=== PATIENT | female | born 1960 | race African-American/Black ===

== ENCOUNTER → 2023-12-08 | Outpatient (CLI) | payer BC ==
[2023-12-08 11:07] LABS: Urine Blood Negative /uL (Negative); Urine Clarity Clear (Clear); Urine Color Colorless (Yellow); Urine Protein, UAD Negative (Negative); Urine Urobilinogen Normal (Negative); Urine pH 6.5 (5.0-8.0)
[2023-12-08 11:08] LABS: Basophils # (auto) 0 10 ^3/uL (0-0.2); Basophils % (auto) 0.7 % (0.0-2.0); Eosinophils # (auto) 0.1 10 ^3/uL (0-0.8); Eosinophils % (auto) 2.5 % (0.0-7.0); Hematocrit 38.7 % (36.0-46.0); Hemoglobin 12.9 g/dL (12.2-16.2); Lymphocytes # (auto) 1.5 10 ^3/uL (0.4-5.4); Lymphocytes % (auto) 48.6 % (10.0-50.0); Mean Corpuscular Hemoglobin 30.2 pg (28.0-32.0); Mean Corpuscular Hgb Conc. 33.3 g/dL (32.0-36.0); Mean Corpuscular Volume 90.7 fL (80.0-100.0); Monocytes # (auto) 0.2 10 ^3/uL (0-1.3); Monocytes % (auto) 7.1 % (0.0-12.0); Neutrophils # (auto) 1.3 10 ^3/uL (1.6-8.6); Neutrophils % (auto) 41.1 % (37.0-80.0); Nucleated Red Blood Cells % 0.1 %; Red Blood Cells 4.27 10^6/uL (4.0-5.20); Red Cell Distribution Width 13.6 % (11.8-14.3); White Blood Cell 3.1 10^3/uL (4.4-10.8)
[2023-12-08 11:42] LABS: Alanine Aminotransferase 14 U/L (7-40); Alkaline Phosphatase 96 U/L (46-116); Anion Gap 6 (5-15); Aspartate Aminotransferase 23 U/L (13-40); BUN/Creatinine Ratio 8.9 (10.0-20.0); Blood Urea Nitrogen 7 mg/dL (9-23); Calcium 9.3 mg/dL (8.5-10.1); Carbon Dioxide 30 mmol/L (20-30); Chloride 105 mmol/L (98-107); Glucose 92 mg/dL (74-106); Potassium 3.2 mmol/L (3.5-5.1); Sodium 141 mmol/L (136-145); Triglycerides 73 mg/dL (< 150)
[2023-12-08 11:43] LABS: Albumin 4.8 g/dL (3.2-4.8); LDL Cholesterol 148 mg/dL (< 100)
[2023-12-08 11:44] LABS: Bilirubin, Total 0.7 mg/dL (0.2-1.0); Cholesterol 232 mg/dL (< 200); HDL Cholesterol 75 mg/dL (40-59); Total Protein 7.4 g/dL (5.7-8.2)
[2023-12-08 12:06] LABS: Magnesium 2.1 mg/dL (1.6-2.6)
[2023-12-09 07:06] LABS: RPR Non Reactive (Non Reactive)
[2023-12-09 17:06] LABS: Chlamydia Trachomatis, NAA Negative (Negative); Neisseria gonorrhoeae, NAA Negative (Negative)
[2023-12-10 09:12] LABS: Hepatitis B Core Total AB Negative (Negative)
[2023-12-10 11:16] LABS: Hepatitis A Total Antibody Positive (Negative); Hepatitis B Surface Antibody Negative (Negative)
[2023-12-10 11:17] LABS: Hepatitis B Surface Antigen Negative (Negative); Hepatitis C Antibody Negative (Negative)
== END | disposition home or self-care (01) ==
LOC: LAB 10:28
DX: Z00.01 Encounter for general adult medical examination with abnormal findings (principal); Z12.11 Encounter for screening for malignant neoplasm of colon; E55.9 Vitamin D deficiency, unspecified; E87.6 Hypokalemia
CPT/HCPCS: 36415; 80053; 80061; 81003; 82306; 83036; 83735; 84439; 84443; 85025; 86592; 86703; 86704; 86706; 86708; 86803; 87340

== ENCOUNTER → 2024-02-12 | Outpatient (CLI) | payer BC ==
[2024-02-12 12:38] LABS: Alanine Aminotransferase 14 U/L (7-40); Albumin 4.5 g/dL (3.2-4.8); Alkaline Phosphatase 94 U/L (46-116); Anion Gap 3 (5-15); Aspartate Aminotransferase 17 U/L (13-40); BUN/Creatinine Ratio 15.1 (10.0-20.0); Bilirubin, Total 0.5 mg/dL (0.2-1.0); Blood Urea Nitrogen 11 mg/dL (9-23); Calcium 9.5 mg/dL (8.5-10.1); Carbon Dioxide 30 mmol/L (20-30); Chloride 108 mmol/L (98-107); Glucose 88 mg/dL (74-106); Potassium 3.9 mmol/L (3.5-5.1); Sodium 141 mmol/L (136-145); Total Protein 7.1 g/dL (5.7-8.2)
== END | disposition home or self-care (01) ==
LOC: LAB 10:53
PROVIDERS: ATTEND Student in an Organized Health Care Education/Training Program
DX: E87.6 Hypokalemia (principal)
CPT/HCPCS: 36415; 80053

== ENCOUNTER → 2024-04-04 | Outpatient (CLI) | payer BC ==
[2024-04-04 11:32] LABS: Urine Bacteria None Seen /hpf (None Seen)
[2024-04-04 11:34] LABS: Basophils # (auto) 0 10 ^3/uL (0-0.2); Basophils % (auto) 0.7 % (0.0-2.0); Eosinophils # (auto) 0.1 10 ^3/uL (0-0.8); Eosinophils % (auto) 3.4 % (0.0-7.0); Hematocrit 37.4 % (36.0-46.0); Hemoglobin 12.5 g/dL (12.2-16.2); Lymphocytes # (auto) 1.5 10 ^3/uL (0.4-5.4); Mean Corpuscular Hemoglobin 30.6 pg (28.0-32.0); Mean Corpuscular Hgb Conc. 33.4 g/dL (32.0-36.0); Mean Corpuscular Volume 91.8 fL (80.0-100.0); Monocytes # (auto) 0.3 10 ^3/uL (0-1.3); Monocytes % (auto) 8.3 % (0.0-12.0); Neutrophils # (auto) 1.5 10 ^3/uL (1.6-8.6); Neutrophils % (auto) 43.6 % (37.0-80.0); Nucleated Red Blood Cells % 0.1 %; Red Blood Cells 4.08 10^6/uL (4.0-5.20); Red Cell Distribution Width 13.4 % (11.8-14.3); White Blood Cell 3.4 10^3/uL (4.4-10.8)
[2024-04-04 11:39] LABS: Urine Blood Negative /uL (Negative); Urine Clarity Clear (Clear); Urine Color Yellow (Yellow); Urine Mucus FEW (None Seen); Urine Protein, UAD TRACE (Negative); Urine Urobilinogen Normal (Negative); Urine WBC 11 /hpf (0 - 5); Urine pH 6.5 (5.0-9.0)
[2024-04-04 12:15] LABS: Protein, Urine 23.3 mg/dL (0.0-11.9)
[2024-04-04 12:16] LABS: Amphetamine Screen, Urine Neg (NEGATIVE)
[2024-04-04 12:17] LABS: Barbiturate Scree,Urine Neg (NEGATIVE); Benzodiazephine Screen, Urine Neg (NEGATIVE); Cocaine Screen, Urine Neg (NEGATIVE); Opiate Scree,Urine Neg (NEGATIVE)
[2024-04-04 12:18] LABS: Phencyclidine Screen, Urine Neg (NEGATIVE)
[2024-04-04 12:19] LABS: Alanine Aminotransferase 13 U/L (7-40); Albumin 4.6 g/dL (3.2-4.8); Alkaline Phosphatase 93 U/L (46-116); Anion Gap 6 (5-15); Aspartate Aminotransferase 14 U/L (13-40); BUN/Creatinine Ratio 17.4 (10.0-20.0); Blood Urea Nitrogen 15 mg/dL (9-23); Calcium 9.6 mg/dL (8.7-10.4); Cannabinoid Screen, Urine Neg (NEGATIVE); Carbon Dioxide 28 mmol/L (20-30); Chloride 106 mmol/L (98-107); Creatine Kinase IFCC 187 U/L (34-145); Glucose 89 mg/dL (74-106); LDL Cholesterol 154 mg/dL (< 100); Magnesium 1.7 mg/dL (1.6-2.6); Potassium 3.5 mmol/L (3.5-5.1); Sodium 140 mmol/L (136-145); Triglycerides 83 mg/dL (< 150)
[2024-04-04 12:20] LABS: Bilirubin, Total 0.7 mg/dL (0.2-1.0); Cholesterol 232 mg/dL (< 200); HDL Cholesterol 72 mg/dL (40-59); Total Protein 7.2 g/dL (5.7-8.2)
== END | disposition home or self-care (01) ==
LOC: LAB 11:14
DX: E87.6 Hypokalemia (principal); E78.5 Hyperlipidemia, unspecified; D70.9 Neutropenia, unspecified
CPT/HCPCS: 36415; 80053; 80061; 80307; 81001; 82088; 82550; 82607; 83036; 83735; 84156; 84244; 84443; 85025

== ENCOUNTER → 2024-05-09 | Outpatient (CLI) | payer BC | END | disposition home or self-care (01) | LOC: XYW 14:56 | PROVIDERS: ATTEND Student in an Organized Health Care Education/Training Program | DX: Z01.810 Encounter for preprocedural cardiovascular examination (principal); I51.89 Other ill-defined heart diseases | CPT/HCPCS: 93306 ==

== ENCOUNTER → 2024-07-26 | Outpatient (CLI) | payer BC ==
[2024-07-26 11:12] LABS: Urine Bacteria None Seen /hpf (None Seen)
[2024-07-26 12:01] LABS: Urine Blood Negative /uL (Negative); Urine Clarity Turbid (Clear); Urine Color Yellow (Yellow); Urine Mucus FEW (None Seen); Urine Protein, UAD 1+ (Negative); Urine Specific Gravity 1.023 (1.001-1.035); Urine Urobilinogen Normal (Negative); Urine WBC 23 /hpf (0 - 5)
[2024-07-26 12:11] LABS: Alanine Aminotransferase 17 U/L (7-40); Albumin 4.6 g/dL (3.2-4.8); Alkaline Phosphatase 86 U/L (46-116); Anion Gap 4 (5-15); Aspartate Aminotransferase 17 U/L (13-40); BUN/Creatinine Ratio 13.6 (10.0-20.0); Blood Urea Nitrogen 12 mg/dL (9-23); Calcium 9.8 mg/dL (8.7-10.4); Carbon Dioxide 29 mmol/L (20-31); Chloride 108 mmol/L (98-107); Glucose 101 mg/dL (74-106); LDL Cholesterol 94 mg/dL (< 100); Potassium 3.8 mmol/L (3.5-5.1); Sodium 141 mmol/L (136-145); Triglycerides 50 mg/dL (< 150)
[2024-07-26 12:12] LABS: Bilirubin, Total 0.7 mg/dL (0.2-1.0); Cholesterol 173 mg/dL (< 200); HDL Cholesterol 66 mg/dL (40-59); Total Protein 7.5 g/dL (5.7-8.2)
[2024-07-26 12:41] LABS: Basophils # (auto) 0 10 ^3/uL (0-0.2); Basophils % (auto) 0.3 % (0.0-2.0); Eosinophils # (auto) 0 10 ^3/uL (0-0.8); Eosinophils % (auto) 1.1 % (0.0-7.0); Hemoglobin 12.2 g/dL (12.2-16.2); Lymphocytes # (auto) 1.2 10 ^3/uL (0.4-5.4); Lymphocytes % (auto) 31.1 % (10.0-50.0); Mean Corpuscular Hemoglobin 30.6 pg (28.0-32.0); Mean Corpuscular Hgb Conc. 33.1 g/dL (32.0-36.0); Mean Corpuscular Volume 92.5 fL (80.0-100.0); Monocytes # (auto) 0.2 10 ^3/uL (0-1.3); Monocytes % (auto) 5.4 % (0.0-12.0); Neutrophils # (auto) 2.5 10 ^3/uL (1.6-8.6); Neutrophils % (auto) 62.1 % (37.0-80.0); Platelet Count (auto) 221 10^3/uL (140-450); Red Cell Distribution Width 13.5 % (11.8-14.3)
== END | disposition home or self-care (01) ==
LOC: LAB 10:53
DX: I10 Essential (primary) hypertension (principal); E78.5 Hyperlipidemia, unspecified; E87.6 Hypokalemia; E55.9 Vitamin D deficiency, unspecified; D70.9 Neutropenia, unspecified
CPT/HCPCS: 36415; 80053; 80061; 81001; 82306; 83036; 83970; 84443; 85025

== ENCOUNTER → 2024-11-02 | Outpatient (CLI) | payer BC ==
[~2024-11-02] VITALS: Ht 165.1 cm; Wt 73.0 kg
--- NOTE | 2024-11-02 11:38 | DVHCARD ---
Cardiology Stress Test [place] Treadmill Stress Test [place] Referring MD: MD Lalo Protocol: Ayan (with cardiolite) Reason for referral: Other (Cardiac clearance ) Target heart Rate:@85%: 133 Percent MPHR: 157 METS: 10.10 Resting Heart rate: 64 Resting Blood Pressure: 137/82 Exercise Heart Rate: 160 Exercise Blood Pressure: 178/83 Baseline EKG: normal sinus rhythm Stress EKG: sinus tachycardia Functional Capacity: Good Normal Heart Rate Response: Adequate Blood Pressure Response: Hypertensive Clinical response: Inconclusive (artifact throughout ) Arrhythmia?: No ST-T Changes: Inconclusive (artifact throughout test ) Probability of Inducible Ische: Perfusion result pending (Artifact in all leads throughout test ) Date of Service: Nov 02, 2024 Billing Provider: SOHA REYES Cardiology Common Codes: PROCEDURE ONLY Treadmill W/Cardiolite Nuclear: [id number], INTERP, RPT SOHA REYES Nov 02, 2024 11:38
--- NOTE | 2024-11-02 16:34 | DVHSR ---
APPROVED REPORT Exam: Nuclear Stress Test Indication: Pre-Operative BMI: 0 Medical History Medical History: HTN, Hyperlipidemia Allergies: No known drug allergies Stress Test Details Stress Test: Exercise stress testing was performed using a Ayan protocol. HR Resting HR: 64 bpmMax Heart Rate (APMHR): 157.695358 bpm Max HR Achieved: 160 bpmTarget HR (85% APMHR): 133.335589 bpm % of APMHR: 101.91 Recovery HR: 81 bpm BP Resting BP: 137/82 mmHg Recovery BP: 147/94 mmHg ECG Resting ECG: Sinus Rhythm Clinical Reason for Termination: Completed protocol Nurse Comments Recieved ambulatory, A/Ox4 on RA, connected to awake overnight monitor, VS stable. PIV S/L flushes well, revi ewed POC, pt verbalized understanding. Andrea SPANISH LINGUIST here to monitor exam. Treadmill test performed per protocol. Pt stable, tolerated well, VS returned to baseline. Pt to follow up with video software engineer for results. Stress ECG Conclusion no severe stress induced ischemia normal lvef lvef 72% NM EXAM: Myocardial Perfusion REST/STRESS Imaging Protocol: Rest Tc-99m/Stress Tc-99m 1 day Resting Data Rest SPECT myocardial perfusion imaging was performed in supine position 60 minutes following the int ravenous injection of 11.7 mCi of Tc-99m Sestamibi. Time of rest injection: 0841 Time of rest imagin Administration Route: IV Administration Site: Left Hand Exercise Stress At peak stress, the patient was injected intravenously with 30.3mCi of Tc-99m Sestamibi. Time of stress injection: 1015 Time of stress imagin Administration Route: IV Administration Site: Left Hand Patient continued to exercise for 9 minute(s). Gated Stress SPECT was performed 30 minutes after stress injection. The images were gated to evaluate regional wall motion and calculate left ventricular ejection fracti on. Stress only was performed in the Supine position. Nuclear Conclusion Nuclear Findings: negative for ischemia no severe stress induced ischemia normal lvef lvef 72%
== END | disposition home or self-care (01) ==
LOC: XYW 08:10
PROVIDERS: ATTEND Internal Medicine
DX: Z01.810 Encounter for preprocedural cardiovascular examination (principal); K80.20 Calculus of gallbladder without cholecystitis without obstruction
CPT/HCPCS: 78452; 93017; A9500

== ENCOUNTER → 2024-11-22 | Outpatient (CLI) | payer BC ==
[2024-11-22 10:34] LABS: Urine Bacteria None Seen /hpf (None Seen)
[2024-11-22 10:55] LABS: Basophils # (auto) 0 10 ^3/uL (0-0.2); Basophils % (auto) 0.7 % (0.0-2.0); Eosinophils # (auto) 0.1 10 ^3/uL (0-0.8); Eosinophils % (auto) 3.7 % (0.0-7.0); Hematocrit 34.2 % (36.0-46.0); Hemoglobin 11.7 g/dL (12.2-16.2); Lymphocytes # (auto) 1.3 10 ^3/uL (0.4-5.4); Lymphocytes % (auto) 39.6 % (10.0-50.0); Mean Corpuscular Hemoglobin 31.4 pg (28.0-32.0); Mean Corpuscular Hgb Conc. 34.3 g/dL (32.0-36.0); Mean Corpuscular Volume 91.5 fL (80.0-100.0); Monocytes # (auto) 0.3 10 ^3/uL (0-1.3); Monocytes % (auto) 8.8 % (0.0-12.0); Neutrophils # (auto) 1.6 10 ^3/uL (1.6-8.6); Neutrophils % (auto) 47.2 % (37.0-80.0); Platelet Count (auto) 234 10^3/uL (140-450); Red Blood Cells 3.73 10^6/uL (4.0-5.20); Red Cell Distribution Width 13.6 % (11.8-14.3); White Blood Cell 3.4 10^3/uL (4.4-10.8)
[2024-11-22 11:17] LABS: Alanine Aminotransferase 24 U/L (7-40); Albumin 4.7 g/dL (3.2-4.8); Alkaline Phosphatase 92 U/L (46-116); Anion Gap 10 (5-15); Aspartate Aminotransferase 22 U/L (13-40); BUN/Creatinine Ratio 13.4 (10.0-20.0); Blood Urea Nitrogen 11 mg/dL (9-23); Carbon Dioxide 26 mmol/L (20-31); Chloride 104 mmol/L (98-107); Glucose 93 mg/dL (74-106); Potassium 4.2 mmol/L (3.5-5.1); Sodium 140 mmol/L (136-145); Total Protein 7.4 g/dL (5.7-8.2)
[2024-11-22 11:18] LABS: Bilirubin, Total 0.6 mg/dL (0.2-1.0)
[2024-11-22 11:51] LABS: Urine Blood Negative /uL (Negative); Urine Clarity Clear (Clear); Urine Color Light-Yellow (Yellow); Urine Mucus FEW (None Seen); Urine Protein, UAD Negative (Negative); Urine Specific Gravity 1.015 (1.001-1.035); Urine Squamous Epithelial Cell FEW /hpf (<5); Urine Urobilinogen Normal (Negative); Urine WBC 9 /HPF (0-5); Urine pH 7.5 (5.0-9.0)
[2024-11-22 12:15] LABS: Triglycerides 64 mg/dL (< 150)
[2024-11-22 12:16] LABS: LDL Cholesterol 80 mg/dL (< 100)
[2024-11-22 12:17] LABS: Cholesterol 156 mg/dL (< 200)
[2024-11-22 12:18] LABS: HDL Cholesterol 63 mg/dL (40-59)
== END | disposition home or self-care (01) ==
LOC: LAB 10:20
PROVIDERS: ATTEND Nurse Practitioner Family
DX: Z12.11 Encounter for screening for malignant neoplasm of colon (principal); I10 Essential (primary) hypertension; E21.3 Hyperparathyroidism, unspecified; E03.9 Hypothyroidism, unspecified; E87.6 Hypokalemia; E78.6 Lipoprotein deficiency
CPT/HCPCS: 36415; 80053; 80061; 81001; 82306; 83036; 83970; 84439; 84443; 85025; 86376

== ENCOUNTER → 2025-01-19 | Outpatient (CLI) | payer BC ==
[2025-01-19 10:10] LABS: Urine Bacteria None Seen /hpf (None Seen)
[2025-01-19 10:32] LABS: Basophils # (auto) 0 10 ^3/uL (0-0.2); Basophils % (auto) 0.3 % (0.0-2.0); Eosinophils # (auto) 0.1 10 ^3/uL (0-0.8); Eosinophils % (auto) 2.9 % (0.0-7.0); Hematocrit 37.2 % (36.0-46.0); Hemoglobin 12.7 g/dL (12.2-16.2); Lymphocytes # (auto) 1.3 10 ^3/uL (0.4-5.4); Lymphocytes % (auto) 40.1 % (10.0-50.0); Mean Corpuscular Hemoglobin 31.2 pg (28.0-32.0); Mean Corpuscular Hgb Conc. 34.2 g/dL (32.0-36.0); Mean Corpuscular Volume 91.2 fL (80.0-100.0); Monocytes # (auto) 0.3 10 ^3/uL (0-1.3); Monocytes % (auto) 8.3 % (0.0-12.0); Neutrophils # (auto) 1.6 10 ^3/uL (1.6-8.6); Neutrophils % (auto) 48.4 % (37.0-80.0); Platelet Count (auto) 206 10^3/uL (140-450); Red Blood Cells 4.08 10^6/uL (4.0-5.20); Red Cell Distribution Width 13.9 % (11.8-14.3); White Blood Cell 3.3 10^3/uL (4.4-10.8)
[2025-01-19 10:40] LABS: Urine Blood Negative /uL (Negative); Urine Clarity Clear (Clear); Urine Color Light-Yellow (Yellow); Urine Hyaline Cast FEW /lpf (0 - 2); Urine Mucus FEW (None Seen); Urine Protein, UAD Negative (Negative); Urine Specific Gravity 1.016 (1.001-1.035); Urine Squamous Epithelial Cell FEW /hpf (<5); Urine Urobilinogen Normal (Negative); Urine WBC 11 /HPF (0-5); Urine pH 7.5 (5.0-9.0)
[2025-01-19 10:58] LABS: Alanine Aminotransferase 19 U/L (7-40); Alkaline Phosphatase 85 U/L (46-116); Anion Gap 6 (5-15); Carbon Dioxide 28 mmol/L (20-31); Chloride 107 mmol/L (98-107); Potassium 4.5 mmol/L (3.5-5.1); Sodium 141 mmol/L (136-145)
[2025-01-19 10:59] LABS: Glucose 95 mg/dL (74-106)
[2025-01-19 11:00] LABS: BUN/Creatinine Ratio 20.2 (10.0-20.0); Blood Urea Nitrogen 19 mg/dL (9-23); Total Protein 7.6 g/dL (5.7-8.2); Triglycerides 75 mg/dL (< 150)
[2025-01-19 11:01] LABS: Aspartate Aminotransferase 20 U/L (13-40); LDL Cholesterol 80 mg/dL (< 100)
[2025-01-19 11:02] LABS: Albumin 4.9 g/dL (3.2-4.8); Bilirubin, Total 0.7 mg/dL (0.2-1.0); Cholesterol 158 mg/dL (< 200); HDL Cholesterol 63 mg/dL (40-59)
== END | disposition home or self-care (01) ==
LOC: LAB 09:54
PROVIDERS: ATTEND Nurse Practitioner Family
DX: I10 Essential (primary) hypertension (principal); D70.9 Neutropenia, unspecified; E03.9 Hypothyroidism, unspecified; E76.9 Glucosaminoglycan metabolism disorder, unspecified; R79.89 Other specified abnormal findings of blood chemistry
CPT/HCPCS: 36415; 80053; 80061; 81001; 82306; 83036; 83970; 84443; 84480; 85025

== ENCOUNTER 2025-02-15 06:06 | Inpatient (IN) | payer BC ==
[2025-02-14 11:13] LABS: Basophils # (auto) 0 10 ^3/uL (0-0.2); Basophils % (auto) 0.7 % (0.0-2.0); Eosinophils # (auto) 0.1 10 ^3/uL (0-0.8); Eosinophils % (auto) 2.8 % (0.0-7.0); Hematocrit 36.9 % (36.0-46.0); Hemoglobin 12.5 g/dL (12.2-16.2); Lymphocytes # (auto) 1.4 10 ^3/uL (0.4-5.4); Lymphocytes % (auto) 42.4 % (10.0-50.0); Mean Corpuscular Hemoglobin 30.8 pg (28.0-32.0); Mean Corpuscular Hgb Conc. 33.8 g/dL (32.0-36.0); Monocytes # (auto) 0.3 10 ^3/uL (0-1.3); Monocytes % (auto) 9.2 % (0.0-12.0); Neutrophils # (auto) 1.5 10 ^3/uL (1.6-8.6); Neutrophils % (auto) 44.9 % (37.0-80.0); Platelet Count (auto) 236 10^3/uL (140-450); Red Blood Cells 4.06 10^6/uL (4.0-5.20); White Blood Cell 3.4 10^3/uL (4.4-10.8)
[2025-02-14 11:22] LABS: Alanine Aminotransferase 18 U/L (7-40); Albumin 4.8 g/dL (3.2-4.8); Alkaline Phosphatase 85 U/L (46-116); Anion Gap 9 (5-15); Aspartate Aminotransferase 18 U/L (13-40); BUN/Creatinine Ratio 14.4 (10.0-20.0); Blood Urea Nitrogen 13 mg/dL (9-23); Calcium 9.9 mg/dL (8.7-10.4); Carbon Dioxide 27 mmol/L (20-31); Chloride 106 mmol/L (98-107); Glucose 97 mg/dL (74-106); INR 0.98 (0.9-1.15); Partial Thromboplastin Time 26.9 SEC (24.5-34.5); Potassium 4.5 mmol/L (3.5-5.1); Prothrombin Time 10.4 sec (9.3-11.8); Sodium 142 mmol/L (136-145); Total Protein 7.4 g/dL (5.7-8.2); Urine Bacteria FEW /hpf (None Seen); Urine Blood Negative /uL (Negative); Urine Clarity Clear (Clear); Urine Color Light-Yellow (Yellow); Urine Protein, UAD Negative (Negative); Urine Specific Gravity 1.006 (1.001-1.035); Urine Squamous Epithelial Cell FEW /hpf (<5); Urine Urobilinogen Normal (Negative); Urine WBC 3 /HPF (0-5)
[2025-02-14 11:23] LABS: Bilirubin, Total 0.5 mg/dL (0.2-1.0)
[~2025-02-15] VITALS: Ht 165.1 cm; Wt 84.4 kg
[2025-02-15] VITALS (7 sets, daily range): BP systolic 110–137; BP diastolic 72–83; PULSE 61–88; RESP 11–18; TEMP 97.3–98.5; O2SAT 97–99
[~2025-02-15 06:06] MED LIST: ASCO500T11 GT; ATOR20TA50 PO; CETI-195 PO; FERR1TAB31 PO; GARL200T PO; MAGN400T40 OR; MULT-1018 PO; POTA-36 PO; SPIR50TA5 PO
[2025-02-15] MEDS: ceFAZolin 2 GM/D5W50ml 50 ML IV ONE (06:18)
[2025-02-15] MEDS: SUCCINYLCHOLINE CHLORIDE 20 MG/ML 10ML VIAL IV ONE (06:56)
[2025-02-15] MEDS ORDERED: fentaNYL CITRATE 100 MCG/2 ML VL ONE (07:00)
[2025-02-15] MEDS ORDERED: HYDROmorphone HCL 2 MG/ML VL/or syr ONE (07:00)
[2025-02-15] MEDS ORDERED: PROPOFOL 10 MG/ML 20 ML IV ONE (07:01)
[2025-02-15] MEDS ORDERED: PHENYLEPHRINE HCL 10 MG/ML VL ONE (07:01)
[2025-02-15] MEDS: LIDOCAINE W/ EPINEPHRINE 1% 20ML VIAL ONE (07:06)
[2025-02-15] MEDS: BUPIVACAINE 0.5% MPF INJ 30ML SDV IJ ONE (07:25)
[2025-02-15] MEDS ORDERED: ROCURONIUM 10MG/ML 10ML VIAL IV ONE (07:58)
[2025-02-15] MEDS ORDERED: ePHEDrine SULFATE 50 MG/ML AMP ONE (08:04)
[2025-02-15] MEDS ORDERED: ONDANSETRON HCL 4 MG/2 ML VIAL ONE (08:13)
[2025-02-15] MEDS ORDERED: DexAMETHasone SOD PHOS 10MG/1ML VIAL INJ ONE (08:13)
[2025-02-15] MEDS ORDERED: SUGAMMADEX 200mg/2ml Vial (100MG/ML) IV ONE (08:36)
[2025-02-15] MEDS ORDERED: ONDANSETRON HCL 4 MG/2 ML VIAL IV PRN ×2 (08:45→14:00)
[2025-02-15] MEDS ORDERED: HYDROmorphone HCL 2 MG/ML VL/or syr IV PRN (09:00)
[2025-02-15] MEDS ORDERED: MEPERIDINE HCL (25 MG/ML) 1ML VIAL IV PRN (09:00)
[2025-02-15] MEDS: cefTRIAXone 1GM/50ML D5W 50 ML IV SCH (09:00)
[2025-02-15] MEDS: ONDANSETRON HCL 4 MG/2 ML VIAL IV ONE (09:00)
--- NOTE | 2025-02-15 09:24 | DVHOP ---
DATE OF SURGERY: 02/15/2025 PREOPERATIVE DIAGNOSES: Cholelithiasis, cholecystitis. POSTOPERATIVE DIAGNOSES: Cholelithiasis, cholecystitis. SURGEON: Josemanuel Guevara MD SHEET MILL SUPERVISOR: Nura Gama NP ANESTHESIA: General endotracheal, Dr. Davila. PROCEDURES: Laparoscopy, laparoscopic cholecystectomy. DESCRIPTION OF PROCEDURE: Under general endotracheal anesthesia, with the patient's skin prepped and draped, a supraumbilical incision was made and Veress needle inserted into the peritoneal cavity by the hanging drop technique in order to establish pneumoperitoneum to 15 mmHg pressure by insufflation with carbon dioxide. With the abdomen fully distended, the needle was removed and replaced with a 5 mm trocar port through which a 0-degree viewing laparoscope was inserted and under direct vision, additional ports were inserted, 5 mm at the anterior axillary line at the level of the umbilicus, 10 mm port in the subxiphoid skin in the midline. Instrumentation was introduced. Laparoscopy was performed revealing no obvious unexpected pathology. The gallbladder was placed on tension. The cystic duct and cystic artery were identified, circumferentially dissected and traced into the hepatocystic triangle so as to minimize the potential for inadvertent injury to the common bile duct. The cystic duct was then divided between metallic clips away from the common duct and the cystic artery divided similarly between clips. The cystic artery retracted after division and there was a small amount of bleeding from the stump of the cystic artery. This was placed on tension and individually ____. Another Hemoclip was placed at the proximal end of the cystic artery, which arrested the bleeding. Subsequently, the gallbladder was resected from its liver bed by electrocautery and traction and a fully mobilized gallbladder was placed into the specimen extraction bag and was retrieved from the peritoneal cavity through the subxiphoid 10 mm port site. Subsequently, the right upper quadrant was profusely irrigated. Irrigant was aspirated. Hemostasis was meticulously assured and found to be complete. A small amount of hemostatic SNoW was placed on to the cystic artery stump. Instrumentation was withdrawn. Pneumoperitoneum was evacuated. Fascial defect closed using 0 Vicryl. The wounds were approximated using Monocryl sutures, Dermabond glue, and Steri-Strips. The patient remained stable throughout the procedure and left the operating room following an accurate needle and sponge counts. Her , Srinivas William, was thoroughly informed in the waiting room. MD MARILYN Chen/MASON/TORRIE TID: [id number] RECEIPT: [id number]
[2025-02-15] MEDS: ACETAMINOPHEN IV 1000 MG/100ML (10MG/ML) IV PRN (09:50)
[2025-02-15] MEDS: PANTOPRAZOLE 40 MG/10 ML VIAL INJ IV SCH (10:00)
[2025-02-15] MEDS: D5W/SOD CHL 0.45%/KCL 20MEQ 1,000 ML IV SCH (12:23)
--- NOTE | 2025-02-15 13:57 | DVHHP2 ---
Review of Systems Allergies: Coded Allergies: Latex (Unverified Allergy, Mild, hives , 02/10/25) Aspirin (Verified Allergy, Unknown, 11/02/24) NSAIDs (Verified Allergy, Unknown, 11/02/24) Medications Current Medications Medications Dose Ordered Sig/Azra Route Start Time Stop Time Status Last Admin Dose Admin Potassium Chloride/Dextrose/ Sod Cl 1,000 ml @ 120 mls/hr Q8H20M IV 02/15/25 08:45 02/15/25 12:23 120 MLS/HR Hydromorphone HCl 1 mg Q3HPRN PRN IV 02/15/25 08:45 Ceftriaxone Sodium 50 ml @ 100 mls/hr DAILY@09 IV 02/15/25 09:00 Ondansetron HCl 4 mg Q4HPRN PRN IV 02/15/25 08:45 Pantoprazole Sodium 40 mg DAILY IV 02/15/25 10:00 Exam Vital Signs Vital Signs Date Time Temp Pulse Resp B/P (MAP) Pulse Ox O2 Delivery O2 Flow Rate FiO2 02/15/25 10:10 Nasal Cannula 3.0 91 02/15/25 10:10 64 16 140/87 (104) 100 02/15/25 08:50 97.9 97.9 Labs/Xrays Labs Test 02/14/25 10:25 Range/Units White Blood Count 3.4 L 4.4-10.8 10^3/uL Red Blood Count 4.06 4.0-5.20 10^6/uL Hemoglobin 12.5 12.2-16.2 g/dL Hematocrit 36.9 36.0-46.0 % Mean Corpuscular Volume 91.0 80.0-100.0 fL Mean Corpuscular Hemoglobin 30.8 28.0-32.0 pg Mean Corpuscular Hemoglobin Concent 33.8 32.0-36.0 g/dL Red Cell Distribution Width 13.0 11.8-14.3 % Platelet Count 236 140-450 10^3/uL Mean Platelet Volume 7.5 6.9-10.8 fL Neutrophils (%) (Auto) 44.9 37.0-80.0 % Lymphocytes (%) (Auto) 42.4 10.0-50.0 % Monocytes (%) (Auto) 9.2 0.0-12.0 % Eosinophils (%) (Auto) 2.8 0.0-7.0 % Basophils (%) (Auto) 0.7 0.0-2.0 % Neutrophils # (Auto) 1.5 L 1.6-8.6 10 ^3/uL Lymphocytes # (Auto) 1.4 0.4-5.4 10 ^3/uL Monocytes # (Auto) 0.3 0-1.3 10 ^3/uL Eosinophils # (Auto) 0.1 0-0.8 10 ^3/uL Basophils # (Auto) 0 0-0.2 10 ^3/uL Nucleated Red Blood Cells 0.0 % Prothrombin Time 10.4 9.3-11.8 sec Prothrombin Time INR 0.98 0.9-1.15 Activated Partial Thromboplast Time 26.9 24.5-34.5 SEC Urine Color Light-yellow Yellow Urine Clarity Clear Clear Urine pH 7.0 5.0-9.0 Urine Specific [place] 1.006 1.001-1.035 Urine Protein Negative Negative Urine Ketones Negative Negative Urine Blood Negative Negative /uL Urine Nitrite Negative Negative Urine Bilirubin Negative Negative Urine Urobilinogen Normal Negative mg/dL Urine Leukocyte Esterase Trace Negative /uL Urine RBC 1 0 - 4 /hpf Urine Microscopic WBC 3 0-5 /HPF Urine Squamous Epithelial Cells Few <5 /hpf Urine Bacteria Few H None Seen /hpf Urine Glucose Normal Normal mg/dL Sodium Level 142 136-145 mmol/L Potassium Level 4.5 3.5-5.1 mmol/L Chloride Level 106 98-107 mmol/L Carbon Dioxide Level 27 20-31 mmol/L Anion Gap 9 5-15 Blood Urea Nitrogen 13 9-23 mg/dL Creatinine 0.90 0.550-1.02 mg/dL Glomerular Filtration Rate Calc 72 >90 mL/min BUN/Creatinine Ratio 14.4 10.0-20.0 Serum Glucose 97 74-106 mg/dL Calcium Level 9.9 8.7-10.4 mg/dL Total Bilirubin 0.5 0.2-1.0 mg/dL Aspartate Amino Transferase (AST) 18 13-40 U/L Alanine Aminotransferase (ALT) 18 7-40 U/L Alkaline Phosphatase 85 46-116 U/L Total Protein 7.4 5.7-8.2 g/dL Albumin 4.8 3.2-4.8 g/dL Assessment/Plan Assessment/Plan SEE DICTATED NOTE Plan discussed with: Patient My Orders Orders - JOSE GUTIÉRREZ MD Procedure Category Date Status Time Admit ADMIT 02/15/25 Transmitted 13:47 Oxygen By Nasal RT 02/15/25 Transmitted Cannula 13:47 Stat Ekg For Chest [facility] 02/15/25 In Process Pain 13:47 Notify Md Of Changes [facility] 02/15/25 In Process From Base 13:47 Technology Education Teacher For [facility] 02/15/25 In Process 24 Hours 13:47 Emergency Dysrhythmia [facility] 02/15/25 In Process Protocol 13:47 Rhythm Strips Once [facility] 02/15/25 In Process Every Shift 13:47 Hydrocodone-Acet PHA 02/15/25 Verified 5/325mg Tab ([place] 14:00 Acetaminophen Tablet PHA 02/15/25 Verified (Tylenol Tablet) 14:00 Ondansetron Hcl PHA 02/15/25 Verified (Zofran) 14:00 Hydralazine Injection PHA 02/15/25 Verified (Apresoline Inject 14:00 Complete Blood Count LAB 02/16/25 Verified 06:00 Comprehensive LAB 02/16/25 Verified Metabolic Panel 06:00 Date of Service: February 15, 2025 Billing Provider: JOSE GUTIÉRREZ MD Common Visit Codes: [id number] INP/OBS CARE (HIGH) Secondary Visit Codes: [id number] CARE PLAN 30 MINUTES JOSE GUTIÉRREZ MD February 15, 2025 13:57
[2025-02-15] MEDS ORDERED: hydrALAZINE HCL 20 MG/ML VL IV PRN (14:00)
--- NOTE | 2025-02-15 14:17 | DVHHP ---
ADMIT DATE: 02/15/2025 HISTORY OF PRESENT ILLNESS: The patient is a 64-year-old lady who is admitted after she underwent laparoscopic cholecystectomy for cholecystitis and cholelithiasis. The patient denies any abdominal pain. No nausea or vomiting. No chest pain or shortness of breath. REVIEW OF SYSTEMS: Review of rest systems otherwise currently negative. PAST MEDICAL HISTORY: Significant for hypertension, hyperlipidemia, and asthma. MEDICATIONS: She takes cetirizine, Lipitor, and Aldactone. ALLERGIES: TO ASPIRIN AND LATEX AND NONSTEROIDAL. SOCIAL HISTORY: Lives with her . Denies smoking or alcohol. FAMILY HISTORY: Negative. PHYSICAL EXAMINATION: GENERAL: The patient is awake, alert. VITAL SIGNS: Temperature of 97.9, pulse of 61 per minute, blood pressure 145/83. SHEENT: Unremarkable. NECK: There is no JVD. No pedal edema. LUNGS: Equal bilaterally. No added sounds. CARDIOVASCULAR SYSTEM: S1 and S2 is regular without murmurs. ABDOMEN: Soft. Bowel sounds are hypoactive. NEUROLOGIC: Nonfocal. MUSCULOSKELETAL: Normal. ASSESSMENT AND PLAN: * Hypertension, for which blood pressure will be monitored. * Hyperlipidemia. * Asthma. * Status post laparoscopic cholecystectomy for chronic cholecystitis and cholelithiasis. * The patient will be placed on pain medications along with IV fluids. * Advanced care planning. The patient is a full code-Time spent was 18 minutes. MD ELAYNE Melendez/NATALY TID: [id number] RECEIPT: [id number] MTDIleana
[2025-02-15] MEDS: HYDROmorphone HCL 2 MG/ML VL/or syr IV PRN (16:58)
[2025-02-16 01:00] VITALS: BP 107/70; PULSE 68; RESP 17; TEMP 98.3; O2SAT 97
[2025-02-16 05:00] VITALS: BP 103/69; PULSE 71; RESP 16; TEMP 98.3; O2SAT 99
[2025-02-16 07:23] LABS: Basophils # (auto) 0 10 ^3/uL (0-0.2); Basophils % (auto) 0.3 % (0.0-2.0); Eosinophils # (auto) 0 10 ^3/uL (0-0.8); Eosinophils % (auto) 0.2 % (0.0-7.0); Hematocrit 36.5 % (36.0-46.0); Hemoglobin 12.2 g/dL (12.2-16.2); Lymphocytes # (auto) 1.1 10 ^3/uL (0.4-5.4); Lymphocytes % (auto) 18.6 % (10.0-50.0); Mean Corpuscular Hemoglobin 30.5 pg (28.0-32.0); Mean Corpuscular Hgb Conc. 33.3 g/dL (32.0-36.0); Mean Corpuscular Volume 91.4 fL (80.0-100.0); Monocytes # (auto) 0.6 10 ^3/uL (0-1.3); Monocytes % (auto) 9.4 % (0.0-12.0); Neutrophils # (auto) 4.3 10 ^3/uL (1.6-8.6); Neutrophils % (auto) 71.5 % (37.0-80.0); Nucleated Red Blood Cells % 0.1 %; Platelet Count (auto) 241 10^3/uL (140-450); Red Cell Distribution Width 13.1 % (11.8-14.3); White Blood Cell 5.9 10^3/uL (4.4-10.8)
[2025-02-16 07:50] LABS: Alanine Aminotransferase 28 U/L (7-40); Albumin 4.4 g/dL (3.2-4.8); Alkaline Phosphatase 81 U/L (46-116); Anion Gap 9 (5-15); Aspartate Aminotransferase 26 U/L (13-40); BUN/Creatinine Ratio 10.5 (10.0-20.0); Calcium 10.2 mg/dL (8.7-10.4); Carbon Dioxide 25 mmol/L (20-31); Potassium 4.3 mmol/L (3.5-5.1); Sodium 142 mmol/L (136-145)
[2025-02-16 07:51] LABS: Bilirubin, Total 0.5 mg/dL (0.2-1.0)
[2025-02-16 07:52] LABS: Blood Urea Nitrogen 9 mg/dL (9-23); Chloride 108 mmol/L (98-107); Glucose 127 mg/dL (74-106)
[2025-02-16] MEDS: ACETAMINOPHEN 325 MG TAB PO PRN (08:45)
[2025-02-16 09:00] VITALS: BP 109/77; PULSE 69; RESP 18; TEMP 98.6; O2SAT 99
[2025-02-16] MEDS: HYDROcodone-ACET 5/325MG TAB PO PRN (10:12)
--- NOTE | 2025-02-16 10:36 | DVHPN2 ---
Progress Note Date Seen: February 16, 2025 Medical Necessity Reason Pt with a Central, PICC or Fol: No Subjective Patient reports: No new complaints Review of Systems: HEENT:Normal, CVS:Normal, RESPIRATORY:Normal, GI:Normal, :Normal, MSK:Normal, NEURO:Normal Objective vital signs Vital Sign Date Time Temp Pulse Resp B/P (MAP) Pulse Ox O2 Delivery O2 Flow Rate FiO2 02/16/25 09:00 98.6 69 18 109/77 (88) 99 98.6 02/15/25 20:00 Room Air* 0 21 Total Intake and Output 02/15/25 02/15/25 02/16/25 15:00 23:00 07:00 Intake Total 500 ml 975 ml Balance 500 ml 975 ml medications Current Medications Medications Dose Ordered Sig/Azra Route Start Time Stop Time Status Last Admin Dose Admin Potassium Chloride/Dextrose/ Sod Cl 1,000 ml @ 120 mls/hr Q8H20M IV 02/15/25 08:45 02/16/25 08:47 120 MLS/HR Hydromorphone HCl 1 mg Q3HPRN PRN IV 02/15/25 08:45 02/15/25 16:58 1 MG Ceftriaxone Sodium 50 ml @ 100 mls/hr DAILY@09 IV 02/15/25 09:00 02/16/25 08:57 100 MLS/HR Pantoprazole Sodium 40 mg DAILY IV 02/15/25 10:00 02/16/25 08:51 40 MG Acetaminophen/ Hydrocodone Bitart 1 tab Q6HPRN PRN PO 02/15/25 14:00 02/16/25 10:12 1 TAB Acetaminophen 650 mg Q6HP PRN PO 02/15/25 14:00 02/16/25 08:45 650 MG Ondansetron HCl 4 mg Q6HPRN PRN IV 02/15/25 14:00 Hydralazine HCl 10 mg Q6HP PRN IV 02/15/25 14:00 Examination: GENERAL:Normal, HEENT:Normal, NECK:Normal, LUNGS:Normal, CVS:Normal, ABDOMEN:Normal, MSK:Normal, SKIN:Normal, NEURO:Normal, :Normal laboratory and microbiology Laboratory Tests 02/16/25 06:44 Test 02/16/25 06:44 Range/Units Serum Glucose 127 H 74-106 mg/dL Problem List/Assessment/Plan Problem List/Assessment/Plan * Hypertension, for which blood pressure will be monitored. * Hyperlipidemia. * Asthma. * Status post laparoscopic cholecystectomy for chronic cholecystitis and cholelithiasis. * The patient will be placed on pain medications along with IV fluids. * Advanced care planning. The patient is a full code-Time spent was 18 minutes. Plan discussed with: Patient, Spouse My Orders My Orders Orders - JOSE GUTIÉRREZ MD Procedure Category Date Status Time Admit ADMIT 02/15/25 Transmitted 13:47 Oxygen By Nasal RT 02/15/25 Transmitted Cannula 13:47 Stat Ekg For Chest [facility] 02/15/25 In Process Pain 13:47 Notify Md Of Changes [facility] 02/15/25 In Process From Base 13:47 Registered Nurse Cardiovascular Icu For [facility] 02/15/25 In Process 24 Hours 13:47 Emergency Dysrhythmia [facility] 02/15/25 In Process Protocol 13:47 Rhythm Strips Once [facility] 02/15/25 In Process Every Shift 13:47 Hydrocodone-Acet PHA 02/15/25 In Process 5/325mg Tab ([place] 14:00 Acetaminophen Tablet PHA 02/15/25 In Process (Tylenol Tablet) 14:00 Ondansetron Hcl PHA 02/15/25 In Process (Zofran) 14:00 Hydralazine Injection PHA 02/15/25 In Process (Apresoline Inject 14:00 Hepatitis B Surface LAB 02/15/25 In Process Antigen 14:36 Hepatitis C Antibody LAB 02/15/25 In Process 14:36 D5 1/2 Ns Potassium PHA 02/16/25 Transmitted 20meq 10:45 Hydromorphone PHA 02/16/25 Transmitted Injection (Dilaudid 10:45 Full Liq Diet DIET 02/16/25 Transmitted Lunch Complete Blood Count LAB 02/17/25 Verified 06:00 Comprehensive LAB 02/17/25 Verified Metabolic Panel 06:00 Date of Service: February 16, 2025 Billing Provider: JOSE GUTIÉRREZ MD Common Visit Codes: [id number] INP/OBS CARE(HIGH) Secondary Visit Codes: [id number] CARE PLAN 30 MINUTES JOSE GUTIÉRREZ MD February 16, 2025 10:36
[2025-02-16 12:47] VITALS: BP 136/81; PULSE 63; RESP 16; TEMP 98; O2SAT 98
[2025-02-16] MEDS: D5W/SOD CHL 0.45%/KCL 20MEQ 1,000 ML IV SCH (16:23)
[2025-02-16 16:51] VITALS: BP 135/68; PULSE 61; RESP 16; TEMP 98; O2SAT 99
[2025-02-16 21:00] VITALS: BP 131/78; PULSE 60; RESP 17; TEMP 93.8; O2SAT 99
[2025-02-16] MEDS: HYDROmorphone HCL 2 MG/ML VL/or syr IV PRN (21:56)
[2025-02-17 01:00] VITALS: BP 117/74; PULSE 64; RESP 16; TEMP 98.1; O2SAT 96
[2025-02-17 04:56] VITALS: BP 118/74; PULSE 65; RESP 16; TEMP 98.6; O2SAT 96
[2025-02-17 06:09] LABS: Basophils # (auto) 0 10 ^3/uL (0-0.2); Basophils % (auto) 0.3 % (0.0-2.0); Eosinophils # (auto) 0 10 ^3/uL (0-0.8); Eosinophils % (auto) 0.3 % (0.0-7.0); Hematocrit 33.8 % (36.0-46.0); Hemoglobin 11.6 g/dL (12.2-16.2); Lymphocytes # (auto) 1.1 10 ^3/uL (0.4-5.4); Lymphocytes % (auto) 19.5 % (10.0-50.0); Mean Corpuscular Hemoglobin 30.9 pg (28.0-32.0); Mean Corpuscular Hgb Conc. 34.4 g/dL (32.0-36.0); Mean Corpuscular Volume 89.8 fL (80.0-100.0); Monocytes # (auto) 0.4 10 ^3/uL (0-1.3); Monocytes % (auto) 6.7 % (0.0-12.0); Neutrophils # (auto) 4.2 10 ^3/uL (1.6-8.6); Neutrophils % (auto) 73.2 % (37.0-80.0); Platelet Count (auto) 228 10^3/uL (140-450); Red Blood Cells 3.77 10^6/uL (4.0-5.20); White Blood Cell 5.7 10^3/uL (4.4-10.8)
[2025-02-17 06:32] LABS: Alanine Aminotransferase 18 U/L (7-40); Albumin 4.3 g/dL (3.2-4.8); Alkaline Phosphatase 73 U/L (46-116); Anion Gap 8 (5-15); Aspartate Aminotransferase 17 U/L (13-40); BUN/Creatinine Ratio 10.3 (10.0-20.0); Bilirubin, Total 0.4 mg/dL (0.2-1.0); Calcium 9.1 mg/dL (8.7-10.4); Carbon Dioxide 26 mmol/L (20-31); Chloride 106 mmol/L (98-107); Potassium 3.9 mmol/L (3.5-5.1); Sodium 140 mmol/L (136-145); Total Protein 6.6 g/dL (5.7-8.2)
[2025-02-17 06:38] LABS: Blood Urea Nitrogen 8 mg/dL (9-23); Glucose 113 mg/dL (74-106)
[2025-02-17 08:20] VITALS: PULSE 65; RESP 17; O2SAT 97
[2025-02-17 09:00] VITALS: BP 126/82; PULSE 65; RESP 17; TEMP 98; O2SAT 97
[2025-02-17 11:17] LABS: Hepatitis B Surface Antigen Negative (Negative); Hepatitis C Antibody Negative (Negative)
[2025-02-17] MEDS ORDERED: HYDR-4902 PO (12:15)
[2025-02-17] MEDS ORDERED: DOCU-94 PO (12:15)
--- NOTE | 2025-02-17 12:23 | DVHDS2 ---
Discharge Summary Date of Admission February 15, 2025 at 13:47 Date of Discharge: February 17, 2025 Admitting Diagnosis Cholelithiasis Labs/Diagnostic Data: Laboratory Results Test 02/17/25 05:47 02/15/25 15:35 02/14/25 10:25 White Blood Count 5.7 10^3/uL (4.4-10.8) Red Blood Count 3.77 10^6/uL (4.0-5.20) Hemoglobin 11.6 g/dL (12.2-16.2) Hematocrit 33.8 % (36.0-46.0) Mean Corpuscular Volume 89.8 fL (80.0-100.0) Mean Corpuscular Hemoglobin 30.9 pg (28.0-32.0) Mean Corpuscular Hemoglobin Concent 34.4 g/dL (32.0-36.0) Red Cell Distribution Width 13.0 % (11.8-14.3) Platelet Count 228 10^3/uL (140-450) Mean Platelet Volume 7.2 fL (6.9-10.8) Neutrophils (%) (Auto) 73.2 % (37.0-80.0) Lymphocytes (%) (Auto) 19.5 % (10.0-50.0) Monocytes (%) (Auto) 6.7 % (0.0-12.0) Eosinophils (%) (Auto) 0.3 % (0.0-7.0) Basophils (%) (Auto) 0.3 % (0.0-2.0) Neutrophils # (Auto) 4.2 10 ^3/uL (1.6-8.6) Lymphocytes # (Auto) 1.1 10 ^3/uL (0.4-5.4) Monocytes # (Auto) 0.4 10 ^3/uL (0-1.3) Eosinophils # (Auto) 0 10 ^3/uL (0-0.8) Basophils # (Auto) 0 10 ^3/uL (0-0.2) Nucleated Red Blood Cells 0.0 % Sodium Level 140 mmol/L (136-145) Potassium Level 3.9 mmol/L (3.5-5.1) Chloride Level 106 mmol/L (98-107) Carbon Dioxide Level 26 mmol/L (20-31) Anion Gap 8 (5-15) Blood Urea Nitrogen 8 mg/dL (9-23) Creatinine 0.78 mg/dL (0.550-1.02) Glomerular Filtration Rate Calc 85 mL/min (>90) BUN/Creatinine Ratio 10.3 (10.0-20.0) Serum Glucose 113 mg/dL (74-106) Calcium Level 9.1 mg/dL (8.7-10.4) Total Bilirubin 0.4 mg/dL (0.2-1.0) Aspartate Amino Transferase (AST) 17 U/L (13-40) Alanine Aminotransferase (ALT) 18 U/L (7-40) Alkaline Phosphatase 73 U/L (46-116) Total Protein 6.6 g/dL (5.7-8.2) Albumin 4.3 g/dL (3.2-4.8) Hepatitis B Surface Antigen Negative (Negative) Hepatitis C Antibody Negative (Negative) Prothrombin Time 10.4 sec (9.3-11.8) Prothrombin Time INR 0.98 (0.9-1.15) Activated Partial Thromboplast Time 26.9 SEC (24.5-34.5) Urine Color Light-yellow (Yellow) Urine Clarity Clear (Clear) Urine pH 7.0 (5.0-9.0) Urine Specific [place] 1.006 (1.001-1.035) Urine Protein Negative (Negative) Urine Ketones Negative (Negative) Urine Blood Negative /uL (Negative) Urine Nitrite Negative (Negative) Urine Bilirubin Negative (Negative) Urine Urobilinogen Normal mg/dL (Negative) Urine Leukocyte Esterase Trace /uL (Negative) Urine RBC 1 /hpf (0 - 4) Urine Microscopic WBC 3 /HPF (0-5) Urine Squamous Epithelial Cells Few /hpf (<5) Urine Bacteria Few /hpf (None Seen) Urine Glucose Normal mg/dL (Normal) Other Laboratory Tests 02/17/25 05:47 Brief Hx & Hospital Course: HISTORY OF PRESENT ILLNESS: The patient is a 64-year-old lady who is admitted after she underwent laparoscopic cholecystectomy for cholecystitis and cholelithiasis. The patient denies any abdominal pain. No nausea or vomiting. No chest pain or shortness of breath. Course of hospitalization: Patient was given postop IV antibiotic therapy, pain management, IV hydration. Some challenges were found with controlling the patient's pain postop. Today, the patient has been ambulating, passing gas, tolerating oral intake. She is requesting to be discharged home. Patient has received adequate postop antibiotic therapy. She will be continued on pain management with [place] 5/325 q.8 hours as needed for mlppqhyc-si-nisead pain. Patient will also be prescribed Colace 100 mg p.o. b.i.d. for constipation x2 days. She reports that she has an appointment with her PCP Dr. Gamble, on February 21. Patient will also follow up with Dr. Guevara in the next 1-2 weeks. Patient was agreeable with discharge plan. All questions answered. Physical examination General: Alert and Oriented x3. No acute distress. Well-nourished. Eyes: EOMI. Anicteric. HENT: Moist mucous membranes. Lungs: Clear to auscultation bilaterally. No accessory muscle use. Cardiovascular: Regular rate and rhythm. No murmur. No JVD. Abdomen: Soft, non-tender and non-distended. No palpable masses. Abdominal surgical puncture sites dry and intact. Extremities: No edema. Non-tender. Skin: No rashes or lesions. Warm. Neurologic: No focal neurological deficits. CN II-XII grossly intact, but not individually tested. Psychiatric: Cooperative. Appropriate mood and affect. Total time spent with patient discussing and formulating plan of care: 35 minutes. This medical document was created using an electronic medical record system with [email or web address] dictation system. Although this document has been carefully reviewed, there may still be some phonetic and typographical errors. These areas are purely typographical due to imperfections of the software programs, and do not reflect any compromise in the patient's medical care. Consults/Reason for consult Surgery: Cholelithiasis Operations or Procedures 02/15/2025: Laparoscopic cholecystectomy Condition at Discharge: Fair Final Diagnosis/Problems List Cholelithiasis, status post cholecystectomy Secondary diagnosis: Obesity Asthma Dyslipidemia Discharge Disposition: Home Discharge Instruct/Medications Diet: Regular Activity: No Restrictions, As Tolerated Follow Up/Referral: Follow up with Dr. Guevara in 1-2 weeks Continue with established appointment with PCP, Dr. Gamble Medications: [place] 5/325 q.8 hours as needed for vgzctuge-sw-nuhzps pain Colace 100 mg p.o. b.i.d. for constipation x2 days 36 Discharge Statement: "Patient was advised to return to the ER or call 911 if any headaches, dizziness, shortness of breath, chest pain, abdominal pain, bleeding, fevers, or worsening of medical condition. Patient was counseled about treatment plan, medications, possible side effects, patientverbalized understanding. All questions were answered to the best of my ability. This discharge took greater then 30 minutes in planning, reviewing documentation, counseling the patient, and discussing with other team members." ASSESSMENT ASSESSMENT Assessment Cholelithiasis, status post cholecystectomy Date of Service: February 17, 2025 Billing Provider: SIDNEY OJEDA NP Common Visit Codes: 96687-LKR/OBS DISCH DAY >30min, 83263-[id number] CARE 30-74 MIN SIDNEY OJEDA NP February 17, 2025 12:23
[2025-02-17 13:18] VITALS: BP 126/86; PULSE 60; RESP 17; TEMP 98.7; O2SAT 100
[2025-02-17 13:28] VITALS: BP 126/82; PULSE 65; RESP 17; TEMP 98; O2SAT 97
== END 2025-02-17 14:30 | disposition home or self-care (01) | DRG 419 ==
LOC: SUR 06:06 → OVERFLOW 13:47 → WEST WING 14:00
PROVIDERS: ADMIT Nurse Practitioner Acute Care; ATTEND Nurse Practitioner Acute Care
PROC: 0FT44ZZ Resection of Gallbladder, Percutaneous Endoscopic Approach (ICD-10-PCS; principal; 2025-02-15 07:48)
DX: K80.10 Calculus of gallbladder with chronic cholecystitis without obstruction (principal); I10 Essential (primary) hypertension; E78.5 Hyperlipidemia, unspecified; J45.909 Unspecified asthma, uncomplicated; K59.00 Constipation, unspecified; E66.9 Obesity, unspecified; Z88.6 Allergy status to analgesic agent; Z91.040 Latex allergy status; Z79.899 Other long term (current) drug therapy; Z68.28 Body mass index [BMI] 28.0-28.9, adult
CPT/HCPCS: 36415; 80053; 81001; 85025; 85610; 85730; 86803; 86850; 86900; 86901; 87340; G0378; J0131; J0330; J1100; J2405; J2470; J2704; J3490

== ENCOUNTER → 2025-04-07 | Outpatient (CLI) | payer BC ==
[~2025-04-07] MED LIST changes: +DOCU-94 PO; +HYDR-4902 PO
[2025-04-07 11:06] LABS: Alanine Aminotransferase 14 U/L (7-40); Albumin 4.7 g/dL (3.2-4.8); Alkaline Phosphatase 76 U/L (46-116); Anion Gap 8 (5-15); BUN/Creatinine Ratio 16.3 (10.0-20.0); Blood Urea Nitrogen 16 mg/dL (9-23); Calcium 9.8 mg/dL (8.7-10.4); Carbon Dioxide 27 mmol/L (20-31); Chloride 107 mmol/L (98-107); Glucose 93 mg/dL (74-106); Potassium 3.9 mmol/L (3.5-5.1); Sodium 142 mmol/L (136-145); Total Protein 7.2 g/dL (5.7-8.2)
[2025-04-07 11:07] LABS: Bilirubin, Total 0.6 mg/dL (0.2-1.0)
== END | disposition home or self-care (01) ==
LOC: LAB 10:21
PROVIDERS: ATTEND Internal Medicine Endocrinology, Diabetes & Metabolism
DX: C73 Malignant neoplasm of thyroid gland (principal); E04.2 Nontoxic multinodular goiter
CPT/HCPCS: 36415; 80053; 84443; 84481; 86376

== ENCOUNTER 2025-05-08 11:32 | Outpatient (CLI) | payer BC ==
[2025-05-08 12:12] LABS: Urine Protein, UAD TRACE (Negative)
[2025-05-08 12:13] LABS: Hematocrit 38.9 % (36.0-46.0); Hemoglobin 13.3 g/dL (12.2-16.2); Mean Corpuscular Hemoglobin 31.2 pg (28.0-32.0); Mean Corpuscular Volume 91.5 fL (80.0-100.0); Nucleated Red Blood Cells % 0.2 %
[2025-05-08 12:24] LABS: Iron 113.0 ug/dL (50-170)
[2025-05-08 12:27] LABS: Total Iron Binding Capacity 315.0 ug/dL (250-425)
[2025-05-08 12:29] LABS: Alanine Aminotransferase 11 U/L (7-40); Albumin 4.9 g/dL (3.2-4.8); Alkaline Phosphatase 82 U/L (46-116); Anion Gap 9 (5-15); BUN/Creatinine Ratio 11.1 (10.0-20.0); Bilirubin, Total 0.6 mg/dL (0.2-1.0); Blood Urea Nitrogen 11 mg/dL (9-23); Calcium 9.4 mg/dL (8.7-10.4); Carbon Dioxide 27 mmol/L (20-31); Chloride 106 mmol/L (98-107); Cholesterol 155 mg/dL (< 200); Glucose 91 mg/dL (74-106); HDL Cholesterol 59 mg/dL (40-59); Potassium 4.1 mmol/L (3.5-5.1); Sodium 142 mmol/L (136-145); Total Protein 7.4 g/dL (5.7-8.2); Triglycerides 89 mg/dL (< 150)
== END 2025-05-08 17:00 | disposition home or self-care (01) ==
LOC: LAB 11:32
PROVIDERS: ATTEND Nurse Practitioner Family
DX: I10 Essential (primary) hypertension (principal); E78.5 Hyperlipidemia, unspecified; D64.9 Anemia, unspecified
CPT/HCPCS: 36415; 80053; 80061; 81003; 82274; 82306; 82607; 83036; 83540; 83550; 84443; 85025